=== PATIENT | female | born 1960 | race Caucasian/White ===

== ENCOUNTER 2017-09-02 12:59 | Day surgery (SDC) | payer OTHER ==
[2017-09-02] MEDS ORDERED: LIDOCAINE 1% MDV (10MG/ML) 20ML VIAL SQ ONE (13:00)
[2017-09-02] MEDS ORDERED: FENTANYL PF 100MCG/2ML VIAL IV ONE (13:00)
[2017-09-02] MEDS ORDERED: PROPOFOL 10 MG/ML VIAL IV ONE (13:00)
--- NOTE | 2017-09-05 12:50 | Operative Note ---
DATE OF SURGERY: 09/02/2017 SURGEON: Tommy Ryder MD OPERATION: ESOPHAGOGASTRODUODENOSCOPY. INDICATIONS: This is a 56-year-old female with history of intermittent episodes of dysphagia who presented for esophagogastroduodenoscopy. POSTOPERATIVE DIAGNOSES: 1. Distal esophageal ring, status post biopsy and Triana dilatation to 60 [place]. 2. Gastritis. 3. Normal duodenum. ANESTHESIA: Sedation is per Anesthesia. Pulse oximetry was monitored throughout the procedure to maintain O2 saturation of 90% or greater. Supplemental oxygen was administered via nasal cannula. Cardiac and vital signs were monitored throughout the duration of the procedure, and they were stable. The procedure of esophagogastroduodenoscopy and risks and benefits of the procedure, including the risk of bleeding and perforation, among others, were explained to the patient who voiced understanding and agreed to have the procedure done. Physical examination was performed, and the patient was found stable for sedation. PROCEDURE: The patient was placed in the left lateral position. Sedation was initiated. A plastic bite block was inserted into the oral cavity. The Olympus [id number] gastroscope was introduced into the oral cavity and advanced to the proximal esophagus without difficulty. The esophageal mucosa was carefully examined upon introduction of the gastroscope. The proximal and mid and distal esophageal mucosa appeared normal. There was a wide-lumen esophageal ring in the distal esophagus but no mass lesions were noted. The gastroscope was then advanced into the stomach, and surveillance of the stomach revealed normal gastric fundus with mild erythema along the gastric body and antrum but no ulcers were noted. The gastroscope was then advanced to the descending duodenum without difficulty. The duodenal bulb and descending duodenum appeared normal. The gastroscope was then withdrawn into the stomach and retroflexion was performed. There were no other lesions noted. The gastroscope was then withdrawn while carefully examining the gastric and esophageal mucosa. No other lesions noted. Multiple gastric and distal esophageal biopsies were obtained. The patient remained with stable vital signs and a Triana dilator size 60 [place] was passed into the stomach with minimal resistance. The Triana dilator was then withdrawn and the procedure was terminated. The patient tolerated the procedure well without any immediate complaints. She remained with stable vital signs and was transferred to the recovery room. RECOMMENDATIONS: The patient is to continue on her proton pump inhibitors and I would be happy to see her back in the office as needed. Thank you for allowing me to participate in the care of your patient. CC: Tesha LOPEZ
== END 2017-09-02 14:35 | disposition home or self-care (01) ==
LOC: HOP 12:59
PROVIDERS: ATTEND Internal Medicine Gastroenterology
DX: Z87.19 Personal history of other diseases of the digestive system (principal); K22.2 Esophageal obstruction; K29.70 Gastritis, unspecified, without bleeding; K21.0 Gastro-esophageal reflux disease with esophagitis; K21.9 Gastro-esophageal reflux disease without esophagitis
CPT/HCPCS: 43239; 43450; 00731; J3010

== ENCOUNTER 2017-10-16 06:30 | Emergency (ER) | payer OTHER ==
[2017-10-16] MEDS ORDERED: METHYLPREDNISOLONE PF 125MG/VIAL IVP ONE (07:45)
[2017-10-16] MEDS ORDERED: DIPHENHYDRAMINE HCL 50 MG/ML VIAL IVP ONE (07:45)
[2017-10-16 08:04] LABS: BASO % 0.2 % (0-6); EOS % 4.9 % (0-6); GRAN % 63.1 % (47-80); HEMATOCRIT 42.7 % (35.0-47.0); HEMOGLOBIN 14.2 gm/dl (11.6-16.0); LYMPH % 19.9 % (16-45); MEAN CELL VOLUME 96.2 fl (81-97); MEAN CORPUSCULAR HGB CONC 33.3 g/dl (32-36); MEAN PLATELET VOLUME 9.2 fl (7.4-10.4); MONO % 11.9 % (0-9); PLATELET COUNT 237 K/uL (130-400); RED BLOOD COUNT 4.44 M/uL (3.80-5.40); RED CELL DISTRIBUTION WIDTH 12.5 % (11.5-14.5); WHITE BLOOD COUNT W/O DIFF 6.4 K/uL (4.2-12.2)
--- NOTE | 2017-10-16 08:07 | Emergency Department Record ---
History of Present Illness - General Chief complaint: Rash Stated complaint: RASH Time Seen by Provider: 10/16/17 06:44 Source: Patient Mode of Arrival: Ambulatory Limitations: No limitations - History of Present Illness Initial comments: pt has a rash in axilla and groin. it also feels sore in her mouth. she was given nystatin swish earlier in the week. she also has discomfort when she swallows in her neck. she also has tightness and swelling in her l calf. she also has an insect bite on her foot that is getting worse w swelling and erythema MD complaint: Rash, Other Onset/Timin -: Days(s) Location: LUE, RUE, Genitals Associated symptoms: Itching Treatments Prior to Arrival: None - Related Data Home Medications Medication Instructions Recorded Confirmed Last Taken Olopatadine HCl 2.5 ml OP ASDIR 10/16/17 10/16/17 Unknown Previous Rx's Medication Instructions Recorded Cephalexin [Keflex] 500 mg PO TID #21 cap 10/16/17 Prednisone [Prednisone 20Mg] 20 mg PO Q12HR #8 tab 10/16/17 Allergies Allergy/AdvReac Type Severity Reaction Status Date / Time clarithromycin [From Biaxin] Allergy RASH Unverified 10/12/17 19:15 Gadolinium-Containing Allergy RASH Unverified 10/12/17 19:15 Contrast Medi metronidazole [From Flagyl] Allergy RASH Unverified 10/12/17 19:15 Travel Screening - Travel/Exposure Within Last 30 Days Have you traveled within the last 30 days?: No Review of Systems Reviewed: No additional complaints except as noted below Constitutional: Reports: As per HPI. Denies: Chills, Fever, Malaise, Night sweats, Weakness, Weight change Eyes: Reports: As per HPI. Denies: Eye discharge, Eye pain, Photophobia, Vision change ENT: Reports: As per HPI, Throat pain. Denies: Congestion, Dental pain, Ear pain, Epistaxis, Hearing loss Respiratory: Reports: As per HPI. Denies: Cough, Dyspnea, Hemoptysis, Stridor, Wheezes Cardiovascular: Reports: As per HPI. Denies: Arrhythmia, Chest pain, Dyspnea on exertion, Edema, Murmurs, Orthopnea, Palpitations, Paroxysmal nocturnal dyspnea, Rheumatic Fever, Syncope Endocrine: Reports: As per HPI. Denies: Fatigue, Heat or cold intolerance, Polydipsia, Polyuria Gastrointestinal: Reports: As per HPI. Denies: Abdominal pain, Constipation, Diarrhea, Hematemesis, Hematochezia, Melena, Nausea, Vomiting Genitourinary: Reports: As per HPI. Denies: Abnormal menses, Discharge, Dyspareunia, Dysuria, Frequency, Hematuria, Incontinence, Retention, Urgency Musculoskeletal: Reports: As per HPI. Denies: Arthralgia, Back pain, Gout, Joint swelling, Myalgia, Neck pain Skin: Reports: As per HPI, Rash. Denies: Bruising, Change in color, Change in hair/nails, Lesions, Pruritus Neurological: Reports: As per HPI. Denies: Abnormal gait, Confusion, Headache, Numbness, Paresthesias, Seizure, Tingling, Tremors, Vertigo, Weakness Psychiatric: Reports: As per HPI. Denies: Anxiety, Auditory hallucinations, Depression, Homicidal thoughts, Suicidal thoughts, Visual hallucinations Hematological/Lymphatic: Reports: As per HPI. Denies: Anemia, Blood Clots, Easy bleeding, Easy bruising, Swollen glands Past Medical History - SOCIAL HISTORY Smoking Status: Never smoker Alcohol Use: None Drug Use: None - RESPIRATORY Hx Respiratory Disorders: Yes Hx Asthma: Yes Hx Bronchitis: Yes - CARDIOVASCULAR Hx Cardio Disorders: Yes Hx Abnormal EKG: Yes (right bundle block- per ekg at Dr. Barney's 07/2017) - NEURO Hx of Neuromuscular Disease: Yes (MS) - GI Hx GI Disorders: Yes Hx Reflux: Yes (takes tums and zantac occassionally) Comment:: dysphagia - Hx Genitourinary Disorders: Yes - ENDOCRINE Hx Endocrine Disorders: No - MUSCULOSKELETAL Hx Musculoskeletal Disorders: Yes Hx Arthritis: Yes (hands, neck) Hx Musculoskeletal Disease: Yes (MS) Comment:: osteopenia - PSYCH Hx Psych Problems: No - HEMATOLOGY/ONCOLOGY Hx Hematology/Oncology Disorders: No Family Medical History Any Significant Family History?: Yes Hx Anxiety: Mother Hx Cancer: Father, Mother, Brother/Sister *Cancer Comment: mother-breast, father & brother- prostate Hx Dementia: Mother Hx Depression: Mother Hx Diabetes: Mother Hx Heart Disease: Mother *Heart Comment: CHF/AFIB Physical Exam - General General Appearance: Alert, Oriented x3, Cooperative, Mild distress - Head Head exam: Normal inspection - Eye Eye exam: Normal appearance, PERRL, EOMI Pupils: Normal accommodation - ENT ENT exam: Normal exam, Mucous membranes moist, Normal external ear exam, Normal orophraynx Ear exam: Normal external inspection. negative: External canal tenderness Nasal Exam: Normal inspection. negative: Discharge, Sinus tenderness Mouth exam: Normal external inspection, Tongue normal Teeth exam: Normal inspection. negative: Dental caries Throat exam: Normal inspection. negative: Tonsillar erythema, Tonsillar exudate - Neck Neck exam: Normal inspection, Full ROM. negative: Tenderness - Respiratory Respiratory exam: Normal lung sounds bilaterally. negative: Respiratory distress - Cardiovascular Cardiovascular Exam: Normal rhythm, Normal heart sounds, Tachycardia - GI/Abdominal GI/Abdominal exam: Soft, Normal bowel sounds. negative: Tenderness - Rectal Rectal exam: Deferred - exam: Deferred - Extremities Extremities exam: Calf tenderness, Full ROM, Normal capillary refill, Tenderness - Back Back exam: Reports: Normal inspection, Full ROM. Denies: Muscle spasm, Rash noted, Tenderness - Neurological Neurological exam: Alert, CN II-XII intact, Normal gait, Oriented X3 - Psychiatric Psychiatric exam: Normal affect, Normal mood - Skin Skin exam: Dry, Intact, Normal color, Rash, Warm Type of lesion: Bite/sting Distribution of rash: Genitals, RUE, LUE, LLE Course Vital Signs 10/16/17 06:43 Temperature 98.6 F Pulse Rate [ 104 H Pulse Ox Probe] Respiratory 20 Rate Blood Pressure 131/62 [Left Arm] Pulse Ox 97 Medical Decision Making - Lab Data Result diagrams: 10/16/17 08:00 10/16/17 08:00 Lab Results 10/16/17 Range/Units 08:00 WBC 6.4 (4.2-12.2) K/uL RBC 4.44 (3.80-5.40) M/uL Hgb 14.2 (11.6-16.0) gm/dl Hct 42.7 (35.0-47.0) % MCV 96.2 (81-97) fl MCH 32.0 (27-33) pg MCHC 33.3 (32-36) g/dl RDW 12.5 (11.5-14.5) % Plt Count 237 (130-400) K/uL MPV 9.2 (7.4-10.4) fl Gran % 63.1 (47-80) % Lymphocytes % 19.9 (16-45) % Monocytes % 11.9 H (0-9) % Eosinophils % 4.9 (0-6) % Basophils % 0.2 (0-6) % Disposition Disposition: Discharge Clinical Impression: Left leg swelling, Rash and nonspecific skin eruption Insect bite Qualifiers: Encounter type: initial encounter Qualified Code(s): W57.XXXA - Bitten or stung by nonvenomous insect and other nonvenomous arthropods, initial encounter Disposition: Home, Self-Care Condition: (1) Good Instructions: Acute Rash (ED), Insect Bite or Sting (ED), Leg Edema (ED) Additional Instructions: return tomorrow at 8am for doppler of leg. return sooner if worse. benadryl every 6 hours as needed Prescriptions: Prednisone [Prednisone 20Mg] 20 mg PO Q12HR #8 tab Cephalexin [Keflex] 500 mg PO TID #21 cap Forms: Patient Portal Access Quality - Quality Measures Quality Measures: N/A - Blood Pressure Screening Does Patient Have Any of the Following: No Blood Pressure Classification: Pre-Hypertensive BP Reading Systolic Measurement: 131 Diastolic Measurement: 62 Screening for High Blood Pressure: < Pre-Hypertensive BP, F/U Documented > [ G8950] Pre-Hypertensive Follow-up Interventions: Follow-up with rescreen every year.
[2017-10-16 08:17] LABS: BLOOD UREA NITROGEN 14 mg/dL (6-20); CREATININE 0.7 mg/dL (0.5-0.9); EST GLOMERULAR FILTRATION RATE > 60 mL/min
[2017-10-16 08:18] LABS: TOTAL PROTEIN 7.5 g/dL (6.6-8.7)
[2017-10-16 08:20] LABS: GLUCOSE,RANDOM 134 mg/dL (74-109)
[2017-10-16 08:22] LABS: ALT/SGPT 28 U/L (<33)
[2017-10-16 08:23] LABS: ALB/GLOB RATIO 1.3 (1.1-1.8); ALBUMIN 4.2 g/dL (4.0-5.0); ALKALINE PHOSPHATASE 86 U/L (35-104); AST/SGOT 29 U/L (10.0-35.0)
[2017-10-16 08:38] LABS: ERYTHROCYTE SEDIMENTATION RATE 10 mm/hr (0-30)
[2017-10-16] MEDS ORDERED: ENOXAPARIN 100 MG/ML SYR SQ ONE (10:26)
--- NOTE | 2017-10-17 13:32 | CT ANGIOGRAM REPORT ---
EXAM: CTA OF THE CHEST HISTORY: RASH. TECHNIQUE: CTA of the chest was performed after intravenous administration of 80 ml of Omnipaque 350 contrast material. Sagittal and coronal MIP images were performed on an independent workstation. FINDINGS: There is no mass or filling defect to suggest pulmonary embolism. The heart size is at the upper limits of normal. No pericardial effusion. No infiltrate or pleural effusion. No endobronchial lesion. There is a small sliding type hiatal hernia. The visualized upper abdominal structures are normal. IMPRESSION: 1. NEGATIVE CTA EXAMINATION OF THE CHEST. 2. SMALL SLIDING TYPE HIATAL HERNIA. JOB [facility]BER: [id number] [facility]
== END 2017-10-16 10:55 | disposition home or self-care (01) ==
LOC: ER 06:30
DX: S90.862A Insect bite (nonvenomous), left foot, initial encounter (principal); R22.42 Localized swelling, mass and lump, left lower limb; R21 Rash and other nonspecific skin eruption; R79.89 Other specified abnormal findings of blood chemistry; R13.10 Dysphagia, unspecified; G35 Multiple sclerosis; W57.XXXA Bitten or stung by nonvenomous insect and other nonvenomous arthropods, initial encounter
CPT/HCPCS: 99284 ×2; 96374; 96372; 96375; 85025; 85651; 80053; 85379; 71275; Q9967; J1200; J1650; J2930

== ENCOUNTER 2017-10-17 08:07 | Emergency (ER) | payer OTHER ==
[2017-10-17] MEDS ORDERED: CEPHALEXIN 500 MG CAPSULE PO STA (08:25)
--- NOTE | 2017-10-17 08:25 | Emergency Department Record ---
History of Present Illness - General Chief Complaint: Recheck - Other Stated Complaint: ULTRASOUND Time Seen by Provider: 10/17/17 08:19 Source: Patient Limitations: No limitations - History of Present Illness Initial Comments: 56 yo female returns as scheduled for a left leg doppler. She reports left calf tightness and swelling. She was seen in the ED and had lab tests and CTA for PE. She has had rash in the groin and arm pits that are improving. The left calf tightness for 2 days is also better nearly gone. No cough or chest pain. MD Complaint: Other Onset/Timin -: Days(s) Initial Visit For: Other Returns Today for: Other Symptoms Since Prior Visit: No new symptoms Associated Symptoms: None - Related Data Previous Rx's Medication Instructions Recorded Cephalexin [Keflex] 500 mg PO TID #21 cap 10/16/17 Prednisone [Prednisone 20Mg] 20 mg PO Q12HR #8 tab 10/16/17 Allergies Allergy/AdvReac Type Severity Reaction Status Date / Time clarithromycin [From Biaxin] Allergy RASH Verified 10/17/17 08:15 Gadolinium-Containing Allergy RASH Verified 10/17/17 08:15 Contrast Medi metronidazole [From Flagyl] Allergy RASH Verified 10/17/17 08:15 Travel Screening - Travel/Exposure Within Last 30 Days Have you traveled within the last 30 days?: No Review of Systems Constitutional: Denies: Chills, Fever, Malaise, Weakness Eyes: Denies: Eye discharge ENT: Denies: Congestion, Throat pain Respiratory: Denies: Cough, Dyspnea Cardiovascular: Denies: Chest pain, Palpitations, Syncope Endocrine: Denies: Fatigue Gastrointestinal: Denies: Abdominal pain, Diarrhea, Nausea, Vomiting Genitourinary: Denies: Dysuria, Urgency Musculoskeletal: Reports: Myalgia. Denies: Arthralgia, Back pain, Joint swelling, Neck pain Skin: Reports: As per HPI, Change in color, Rash. Denies: Bruising Neurological: Denies: Headache, Numbness, Vertigo, Weakness Psychiatric: Reports: Anxiety Hematological/Lymphatic: Denies: Blood Clots, Easy bleeding, Easy bruising Past Medical History - SOCIAL HISTORY Smoking Status: Never smoker Alcohol Use: None Drug Use: None - RESPIRATORY Hx Respiratory Disorders: Yes Hx Asthma: Yes Hx Bronchitis: Yes - CARDIOVASCULAR Hx Cardio Disorders: Yes Hx Abnormal EKG: Yes (right bundle block- per ekg at Dr. Barney's 07/2017) - NEURO Hx Neuro Disorders: Yes Hx of Neuromuscular Disease: Yes (MS) - GI Hx GI Disorders: Yes Hx Reflux: Yes (takes tums and zantac occassionally) Comment:: dysphagia - Hx Genitourinary Disorders: Yes - ENDOCRINE Hx Endocrine Disorders: No - MUSCULOSKELETAL Hx Musculoskeletal Disorders: Yes Hx Arthritis: Yes (hands, neck) Hx Musculoskeletal Disease: Yes (MS) Comment:: osteopenia - PSYCH Hx Psych Problems: No - HEMATOLOGY/ONCOLOGY Hx Hematology/Oncology Disorders: No Family Medical History Any Significant Family History?: Yes Hx Anxiety: Mother Hx Cancer: Father, Mother, Brother/Sister *Cancer Comment: mother-breast, father & brother- prostate Hx Dementia: Mother Hx Depression: Mother Hx Diabetes: Mother Hx Heart Disease: Mother *Heart Comment: CHF/AFIB Physical Exam - General General Appearance: Alert, Oriented x3, Cooperative, No acute distress Limitations: No limitations - Head Head exam: Atraumatic, Normal inspection - Eye Eye exam: Normal appearance. negative: Conjunctival injection - ENT ENT exam: Normal exam, Mucous membranes moist Ear exam: Normal external inspection Nasal Exam: Normal inspection Mouth exam: Normal external inspection - Neck Neck exam: Normal inspection - Respiratory Respiratory exam: Normal lung sounds bilaterally. negative: Respiratory distress - Cardiovascular Cardiovascular Exam: Regular rate, Normal rhythm, Normal heart sounds - GI/Abdominal GI/Abdominal exam: Soft. negative: Tenderness - Extremities Extremities exam: Normal inspection, Full ROM, Normal capillary refill. negative: Calf tenderness, Joint swelling, Pedal edema, Tenderness - Back Back exam: Reports: Normal inspection - Neurological Neurological exam: Alert, Oriented X3 - Psychiatric Psychiatric exam: Normal affect, Normal mood - Skin Skin exam: Dry, Intact, Normal color, Warm Course Vital Signs 10/17/17 08:16 Temperature 98.0 F Pulse Rate 106 H Respiratory 20 Rate Blood Pressure 118/69 Pulse Ox 95 - Reevaluation(s) Reevaluation #1: 10/17/17 09:23 The venous doppler is negative He other symptoms are improving She is stable for DC to follow up with her PCP Disposition Disposition: Discharge Clinical Impression: Pain of left calf Disposition: Home, Self-Care Condition: (1) Good Instructions: Leg Edema (ED) Additional Instructions: Return if you have any concerns or questions Return if the calf pain returns or any swelling Follow up the two ER visits with your doctor and review the tests Forms: Patient Portal Access Time of Disposition: 09:33 Quality - Quality Measures Quality Measures: N/A - Blood Pressure Screening Does Patient Have Any of the Following: No Blood Pressure Classification: Normal BP Reading Systolic Measurement: 113 Diastolic Measurement: 60 Screening for High Blood Pressure: < Normal BP, F/U Not Required > [G8783]
--- NOTE | 2017-10-18 20:30 | US VENOUS DOPPLER REPORT ---
EXAM: ULTRASOUND VENOUS DOPPLER LOWER EXT LT HISTORY: PAIN AND SWELLING IN POPLITEAL REGION. RASH IN LEFT GROIN. TECHNIQUE: Yu scale, color Doppler, and duplex Doppler evaluation of the deep venous structures of the left lower extremity performed from the level of the external iliac vein through the calf veins. The following segments are interrogated: external iliac; greater saphenous; common femoral; profunda femora ; superficial femoral; popliteal; posterior tibial; peroneal; anterior tibial. COMPARISON: None. FINDINGS: The external iliac vein is anechoic and with normal duplex waveform. The remaining segments are anechoic, completely compressible and with normal waveforms. All waveforms are augmentable. The right common femoral vein is patent. IMPRESSION: NO EVIDENCE OF DEEP VENOUS THROMBOSIS WITHIN THE LEFT LOWER EXTREMITY. [facility]BER: [id number] [facility]
== END 2017-10-17 09:49 | disposition home or self-care (01) ==
LOC: ER 08:07
DX: M79.662 Pain in left lower leg (principal)
CPT/HCPCS: 99282